=== PATIENT | male | born 1985 | race Native Hawaiian/Other Pacific Islander ===

== ENCOUNTER 2018-12-09 06:57 | Emergency (ER) | payer BC, OTHER ==
[2018-12-09] MEDS ORDERED: KETOROLAC 60 MG/2 ML VIAL IM STA (07:43)
[2018-12-09] MEDS ORDERED: CYCLOBENZAPRINE 10 MG TABLET PO STA (07:43)
[2018-12-09] MEDS ORDERED: DEXAMETHASONE 10 MG/ML VIAL PO STA (07:43)
[2018-12-09] MEDS ORDERED: CHERRY SYRUP 10 ML UDC PO ONE (07:43)
--- NOTE | 2018-12-09 07:46 | ED Physician Documentation ---
PD HPI BACK PAIN - Stated complaint Stated Complaint: BACK PX - Chief complaint Chief Complaint: Back Pain - History obtained from History obtained from: Patient, Family - History of Present Illness Timing - onset: How many weeks ago (1) Timing - duration: Weeks (1) Timing - details: Gradual onset Pain level max: 8 Pain level now: 8 Location: Lower, Right, Left Quality: Pain, Spasm, Sharp Associated symptoms: No: Fever, Weakness, Numbness, Incontinent of urine, Unable to urinate, Hematuria, Incontinent of stool Improves with: Rest Worsened by: Movement Contributing factors: Other (bends over a lot at work) Similar symptoms before: Has not had sx before Recently seen: Not recently seen Review of Systems Constitutional: denies: Fever, Chills Cardiac: denies: Chest pain / pressure Respiratory: denies: Cough GI: denies: Nausea, Vomiting : denies: Dysuria, Unable to Void, Incontinent Skin: denies: Rash Musculoskeletal: denies: Neck pain, Back pain Neurologic: denies: Headache PD PAST MEDICAL HISTORY - Past Medical History Past Medical History: No - Past Surgical History Past Surgical History: No - Present Medications Home Medications: Ambulatory Orders Medication Instructions Recorded Confirmed Cyclobenzaprine [Flexeril] 10 mg PO TID PRN #20 tablet 12/09/18 Meloxicam [Mobic] 15 mg PO DAILY PRN #20 tablet 12/09/18 predniSONE [Deltasone] 10 mg PO [id number] #42 tab 12/09/18 - Allergies Allergies/Adverse Reactions: Allergies Allergy/AdvReac Type Severity Reaction Status Date / Time No Known Drug Allergies Allergy Verified 12/09/18 07:07 - Living Situation Living Situation: reports: With family Living Arrangement: reports: At home - Social History Does the pt smoke?: No Smoking Status: Never smoker Does the pt have substance abuse?: No - Family History Family history: reports: Non contributory - Immunizations Immunizations are current?: No PD ED PE NORMAL - Vitals Vital signs reviewed: Yes - General General: Alert and oriented X 3, No acute distress, Well developed/nourished - HEENT HEENT: PERRL, Moist mucous membranes - Neck Neck: Supple, no meningeal sign - Cardiac Cardiac: RRR, Strong equal pulses - Respiratory Respiratory: No respiratory distress, Clear bilaterally - Abdomen Abdomen: Soft, Non tender, Non distended - Back Back: No spinal TTP, Other (no stepoff or deformity. no midline TTP. paraspinal spasm. B Low lumbar.) - Derm Derm: Warm and dry - Extremities Extremities: Other (Normal bilateral lower extremity patellar and ankle jerk reflexes. Normal great toe extension bilaterally. no saddle anesthesia) - Neuro Neuro: Alert and oriented X 3, No motor deficit, No sensory deficit - Psych Psych: Normal mood, Normal affect Results - Vitals Vitals: Vital Signs - 24 hr 12/09/18 12/09/18 07:05 08:50 Temperature 36.4 C L Heart Rate 76 74 Respiratory 16 18 Rate Blood Pressure 138/83 H 146/84 H O2 Saturation 99 Oxygen O2 Source Room air PD MEDICAL DECISION MAKING - ED course Complexity details: considered differential (No cauda equina, no spinal epidural abscess, no fracture, no aortic dissection or evidence of aneursym rupture), d/w patient, d/w family ED course: 33-year-old male with sciatica. Will place on steroids, anti-inflammatories and muscle relaxants for home. Will follow up with his doctor for further care. No evidence of cauda equina. No IV drug use. No evidence of epidural abscess. Ambulating well. Patient and family counseled regarding signs and symptoms for which I believe and urgent re-evaluation would be necessary. Patient with good understanding of and agreement to plan and is comfortable going home at this time This document was made in part using voice recognition software. While efforts are made to proofread this document, sound alike and grammatical errors may occur. Departure - Departure Disposition: 01 Home, Self Care Clinical Impression: Sciatica Qualifiers: Laterality: bilateral Qualified Code(s): M54.31 - Sciatica, right side Condition: Good Instructions: ED Sciatica Follow-Up: Kyra Luna PA-C [Primary Care Provider] - Within 1 week Prescriptions: Cyclobenzaprine [Flexeril] 10 mg PO TID PRN #20 tablet PRN Reason: Spasms Meloxicam [Mobic] 15 mg PO DAILY PRN #20 tablet PRN Reason: pain predniSONE [Deltasone] 10 mg PO [id number] #42 tab Comments: Return if you worsen. Do not drive or operate heavy machinery while taking the flexeril. this should improve over the next few days. Forms: Activity restrictions Discharge Date/Time: 12/09/18 08:55
[2018-12-09 09:20] VITALS: BP 146/84
== END 2018-12-09 08:55 | disposition home or self-care (01) ==
LOC: ED 06:57
DX: M54.31 Sciatica, right side (principal)
CPT/HCPCS: 96372; 99283; A9270

== ENCOUNTER 2018-12-10 07:01 | Outpatient (CLI) | payer BC | END 2018-12-10 07:02 | disposition critical access hospital (66) | LOC: EMS 07:01 | PROVIDERS: ATTEND Surgery | DX: K91.840 Postprocedural hemorrhage of a digestive system organ or structure following a digestive system procedure (principal) | CPT/HCPCS: A0425; A0427 ==

== ENCOUNTER 2018-12-10 07:25 | Emergency (ER) | payer BC ==
[2018-12-10] MEDS ORDERED: SODIUM CHLORIDE 0.9% 1,000 ML IV ONE ×2 (07:37→08:34)
--- NOTE | 2018-12-10 07:40 | ED Physician Documentation ---
History of Present Illness - Stated complaint Stated Complaint: SYNCOPE - Chief complaint Chief Complaint: General - History obtained from History obtained from: Patient, Family () - History of Present Illness Timing: Prior to arrival - Treatment prior to arrival Treatment prior to arrival: Normal saline 250 mL. - Additonal information Additional information: The patient is a 33-year-old male who arrives via ambulance after a syncopal episode at home. He underwent extraction of 2 teeth yesterday, and has been bl eeding from an extraction site since that time. This morning he felt lightheaded. When medics arrived they found his blood pressure low at 90/64, and he passed out when standing. Medics administered normal saline 250 mL, and the patient's blood pressure has responded well. He denies any abdominal pain, vomiting, or diarrhea. He denies history of similar symptoms in the past. The patient speaks very little [place]ian, so history is obtained mostly from his . He was seen here yesterday for lower back pain, which was diagnosed as sciatica. He denies back pain this morning. Review of Systems Constitutional: reports: Other (Dizzy, lightheaded.). denies: Fever Eyes: denies: Decreased vision Ears: denies: Tinnitus/ringing Nose: denies: Congestion Throat: reports: Dental pain / toothache (One day S/P dental extractions.). denies: Sore throat Cardiac: denies: Chest pain / pressure Respiratory: denies: Dyspnea, Cough GI: denies: Abdominal Pain, Nausea, Vomiting, Diarrhea : denies: Dysuria Skin: denies: Rash Musculoskeletal: denies: Back pain Neurologic: reports: Syncope. denies: Focal weakness, Numbness, Headache, Head injury PD PAST MEDICAL HISTORY - Past Medical History Cardiovascular: None Respiratory: None Neuro: None Endocrine/Autoimmune: None - Past Surgical History Past Surgical History: No - Present Medications Home Medications: Ambulatory Orders Medication Instructions Recorded Confirmed Cyclobenzaprine [Flexeril] 10 mg PO TID PRN #20 tablet 12/09/18 Meloxicam [Mobic] 15 mg PO DAILY PRN #20 tablet 12/09/18 predniSONE [Deltasone] 10 mg PO [id number] #42 tab 12/09/18 - Allergies Allergies/Adverse Reactions: Allergies Allergy/AdvReac Type Severity Reaction Status Date / Time No Known Drug Allergies Allergy Verified 12/10/18 07:34 - Social History Does the pt smoke?: No Smoking Status: Never smoker Does the pt have substance abuse?: No - Immunizations Immunizations are current?: No PD ED PE NORMAL - Vitals Vital signs reviewed: Yes (normal) - General General: Alert and oriented X 3, Well developed/nourished - HEENT HEENT: Atraumatic, EOMI, Pharynx benign, Other (There is clotted blood at an extraction site of a right upper molar, as well as a left lower molar. There is slight oozing of blood from the right upper molar extraction site.) - Neck Neck: Supple, no meningeal sign, No adenopathy - Cardiac Cardiac: RRR, No murmur - Respiratory Respiratory: No respiratory distress, Clear bilaterally - Abdomen Abdomen: Soft, Non tender - Back Back: No spinal TTP - Derm Derm: No rash - Extremities Extremities: No edema, No calf tenderness / cord - Neuro Neuro: Alert and oriented X 3, No motor deficit, No sensory deficit Results - Vitals Vitals: Oxygen O2 Source Room air - Labs Labs: Laboratory Tests 12/10/18 12/10/18 07:49 07:49 WBC 12.7 H RBC 4.26 L Hgb 11.4 L Hct 34.7 L MCV 81.4 MCH 26.8 L MCHC 33.0 RDW 13.3 Plt Count 335 MPV 6.6 L Neut # (Auto) 10.5 H Lymph # (Auto) 1.2 L Harding # (Auto) 1.0 Eos # (Auto) 0.0 Baso # (Auto) 0.0 Absolute Nucleated RBC 0.01 Nucleated RBC % 0.1 Sodium 137 Potassium 3.7 Chloride 103 Carbon Dioxide 24 Anion Gap 10.0 BUN 26 H Creatinine 0.9 Estimated GFR (MDRD) 96 Glucose 135 H Calcium 8.6 Total Bilirubin 0.8 AST 33 ALT 79 H Alkaline Phosphatase 75 Total Protein 6.4 L Albumin 3.6 Globulin 2.8 Albumin/Globulin Ratio 1.3 Lipase 27 PD MEDICAL DECISION MAKING - ED course Complexity details: reviewed old records, reviewed results, re-evaluated patient, considered differential, d/w patient, d/w family ED course: The patient's presentation is most consistent with orthostatic hypotension associated with dehydration. Although he does have blood loss from bleeding at the extraction site of a dental extraction, his hemoglobin and hematocrit are quite satisfactory 11.4 and 34.7. His BUN to creatinine ratio was consistent with dehydration, with BUN 26 and creatinine 0.9. He was initially tachycardic, with a pulse of 100 range. Treatment in the emergency department included compression of the bleeding site with a gauze pad. Normal saline 2 L were administered IV. He felt subjectively much improved after IV fluids. He subsequently demonstrated ability to ambulate without lightheadedness. There was complete cessation of bleeding from the tooth extraction site. I discussed with him and his the importance of adequate hydration, outpatient follow-up, as well as potentially worrisome signs or symptoms that should prompt reevaluation in the emergency department. Departure - Departure Disposition: 01 Home, Self Care Clinical Impression: Syncope, near, Surgical wound hemorrhage after dental procedure, Dehydration symptoms Condition: Stable Instructions: ED Dehydration, ED Near Syncope Unkn Follow-Up: Kyra Luna PA-C [Primary Care Provider] - Comments: Drink plenty of fluids. If there is bleeding from the tooth extraction site, apply gauze pad to help stop the bleeding. Return to the emergency department if you develop persistent bleeding, recurrent lightheadedness, or otherwise worsening symptoms. Discharge Date/Time: 12/10/18 11:00
[2018-12-10 07:56] LABS: BASOPHILS % (AUTO) 0.2 %; EOSINOPHILS % (AUTO) 0.2 %; HGB - HEMOGLOBIN 11.4 g/dL (14.0-18.0); LYMPHOCYTES # (AUTO) 1.2 10^3/uL (1.5-3.5); LYMPHOCYTES % (AUTO) 9.6 %; MEAN CORPUSCULAR HEMOGLOBIN 26.8 pg (27.0-31.0); MEAN CORPUSCULAR VOLUME 81.4 fL (80.0-94.0); MEAN PLATELET VOLUME 6.6 fL (7.4-11.4); MONOCYTES % (AUTO) 7.8 %; NEUTROPHILS # (AUTO) 10.5 10^3/uL (1.5-6.6); NEUTROPHILS % (AUTO) 82.2 %; PLT - PLATELET COUNT 335 10^3/uL (130-450); RED BLOOD COUNT 4.26 10^6/uL (4.70-6.10); RED CELL DISTRIBUTION WIDTH 13.3 % (12.0-15.0); WHITE BLOOD COUNT 12.7 x10^3/uL (4.8-10.8)
[2018-12-10 08:11] LABS: ALBUMIN 3.6 g/dL (3.2-5.5); ALBUMIN/GLOBULIN RATIO 1.3 (1.0-2.2); BILIRUBIN,TOTAL 0.8 mg/dL (0.2-1.0); CALCIUM 8.6 mg/dL (8.5-10.3); CREATININE 0.9 mg/dL (0.6-1.2); TOTAL PROTEIN 6.4 g/dL (6.7-8.2)
[2018-12-10 11:19] VITALS: BP 108/64
== END 2018-12-10 11:00 | disposition home or self-care (01) ==
LOC: EDUNIT# → ED 07:25
DX: R55 Syncope and collapse (principal); K91.840 Postprocedural hemorrhage of a digestive system organ or structure following a digestive system procedure
CPT/HCPCS: 36415; 80053; 83690; 85025; 96360; 96361; 99283

== ENCOUNTER 2021-03-16 19:30 | Emergency (ER) | payer BC, OTHER ==
--- NOTE | 2021-03-16 21:05 | ED Physician Documentation ---
History of Present Illness - Stated complaint Stated Complaint: RASH/MUSCLE PX - Chief complaint Chief Complaint: General - History obtained from History obtained from: Patient, Family - History of Present Illness Timing: How many days ago (5-6) Pain level max: 3 Pain level now: 3 - Additonal information Additional information: 36-year-old male with dry cough, loss of taste and smell for the past week. Body aches. Generalized rash. Has not had his Covid vaccination. Nothing makes it better or worse. Review of Systems Constitutional: reports: Chills. denies: Fever Ears: denies: Ear pain Nose: denies: Rhinorrhea / runny nose, Congestion Respiratory: reports: Cough (dry) GI: denies: Vomiting, Diarrhea Skin: reports: Rash (generalized) Musculoskeletal: denies: Neck pain, Back pain Neurologic: denies: Headache PD PAST MEDICAL HISTORY - Past Medical History Cardiovascular: None Respiratory: None Neuro: None Endocrine/Autoimmune: None - Past Surgical History Past Surgical History: No - Present Medications Home Medications: Ambulatory Orders Medication Instructions Recorded Confirmed No Known Home Medications 03/16/21 03/16/21 - Allergies Allergies/Adverse Reactions: Allergies Allergy/AdvReac Type Severity Reaction Status Date / Time No Known Drug Allergies Allergy Verified 03/16/21 19:49 - Social History Does the pt smoke?: No Smoking Status: Never smoker Does the pt have substance abuse?: No - Immunizations Immunizations are current?: No PD ED PE NORMAL - Vitals Vital signs reviewed: Yes - General General: Alert and oriented X 3, No acute distress, Well developed/nourished - HEENT HEENT: PERRL, Moist mucous membranes, Pharynx benign - Neck Neck: Supple, no meningeal sign - Cardiac Cardiac: RRR, Strong equal pulses - Respiratory Respiratory: No respiratory distress, Clear bilaterally - Abdomen Abdomen: Soft, Non tender, Non distended - Derm Derm: Warm and dry, Other (Generalized maculopapular exanthem. Blanches easily. Light pink in color.) - Extremities Extremities: No edema - Neuro Neuro: Alert and oriented X 3 - Psych Psych: Normal mood, Normal affect Results - Vitals Vitals: Vital Signs - 24 hr 03/16/21 03/16/21 03/16/21 19:49 21:20 21:41 Temperature 36.5 C 37.9 C Heart Rate 83 86 Respiratory 16 24 Rate Blood Pressure 124/90 H 94/63 O2 Saturation 99 99 Oxygen O2 Source Room air - Labs Labs: Laboratory Tests 03/16/21 20:05 Nasal Adenovirus (PCR) NOT DETECTED Nasal B. parapertussis DNA (PCR) NOT DETECTED Nasal Coronavir 229E PCR NOT DETECTED Nasal Coronavir HKU1 PCR NOT DETECTED Nasal Coronavir NL63 PCR NOT DETECTED Nasal Coronavir OC43 PCR NOT DETECTED Nasal Enterovir/Rhinovir PCR NOT DETECTED Nasal Influenza B PCR NOT DETECTED Nasal Influenza A PCR NOT DETECTED Nasal Parainfluen 1 PCR NOT DETECTED Nasal Parainfluen 2 PCR NOT DETECTED Nasal Parainfluen 3 PCR NOT DETECTED Nasal Parainfluen 4 PCR NOT DETECTED Nasal RSV (PCR) NOT DETECTED Nasal B.pertussis DNA PCR NOT DETECTED Nasal C.pneumoniae (PCR) NOT DETECTED Erik Human Metapneumo PCR NOT DETECTED Nasal M.pneumoniae (PCR) NOT DETECTED Nasal SARS-CoV-2 (PCR) DETECTED A PD MEDICAL DECISION MAKING - ED course Complexity details: reviewed results, re-evaluated patient, considered differential, d/w patient, d/w family ED course: Patient is positive for COVID-19. Unvaccinated. We will continue supportive care at home. Discussed bamlanivimab and etesevimab treatment, declines this at this time. Patient counseled regarding signs and symptoms for which I believe and urgent re-evaluation would be necessary. Patient with good understanding of and agreement to plan and is comfortable going home at this time This document was made in part using voice recognition software. While efforts are made to proofread this document, sound alike and grammatical errors may occur. Departure - Departure Disposition: 01 Home, Self Care Clinical Impression: COVID-19 Condition: Good Instructions: COVID-19 [facility], COVID-19 [facility] Department Statement Follow-Up: your,doctor as needed [Other] Comments: You have tested positive for Covid tonight. You need to quarantine until your symptoms have resolved. Return for any difficulty breathing or worsening symptoms. Follow-up with your doctor for further care. Stay home and rest. You should not be out in public with others either. Discharge Date/Time: 03/16/21 21:41
[2021-03-16 21:08] LABS: B. PARAPERTUSSIS- RESP PCR PAN NOT DETECTED; B. PERTUSSIS- RESP PCR PANEL NOT DETECTED; C. PNEUMONIAE- RESP PCR PANEL NOT DETECTED; CORONAVIRUS 229E-RESP PCR NOT DETECTED; CORONAVIRUS HKU1-RESP PCR NOT DETECTED; CORONAVIRUS NL63-RESP PCR NOT DETECTED; CORONAVIRUS OC43-RESP PCR NOT DETECTED; HUMAN METAPNEUMOVIRUS NOT DETECTED; INFLUENZA A- RESP PCR PANEL NOT DETECTED; INFLUENZA B - RESP PCR PANEL NOT DETECTED; M. PNEUMONIAE- RESP PCR PANEL NOT DETECTED; PARAINFLUENZA VIRUS 1 NOT DETECTED; PARAINFLUENZA VIRUS 2 NOT DETECTED; PARAINFLUENZA VIRUS 3 NOT DETECTED; PARAINFLUENZA VIRUS 4 NOT DETECTED; RHINOVIRUS/ENTEROVIRUS NOT DETECTED; RSV- RESP PCR PANEL NOT DETECTED; SARS-CoV-2 -RESP PCR PANEL DETECTED
[2021-03-16 21:24] VITALS: BP 94/63
== END 2021-03-16 21:41 | disposition home or self-care (01) ==
LOC: ED 19:30
DX: U07.1 COVID-19 (principal)
CPT/HCPCS: 0202U; 99283; 99284

== ENCOUNTER 2022-08-13 07:00 | Outpatient (CLI) | payer OTHER ==
--- NOTE | 2022-08-14 20:24 | XRAY Report ---
PROCEDURE: Foot 3 View LT INDICATIONS: L FOOT PX TECHNIQUE: 3 views of the foot were acquired. COMPARISON: None. FINDINGS: Bones: No fractures or dislocations. Well-defined dorsal calcaneal enthesophyte is seen. Chronic ap pearing erosive changes over dorsal and medial aspect of first metatarsal base is seen. No suspicious bony lesions. Soft tissues: Soft tissue swelling over dorsal and medial aspect of first metatarsal base is noted. No tibiotalar joint effusion. Achilles tendon appears normal. IMPRESSION: Suggestion of soft tissue pannus over dorsal and medial aspect of first metatarsal base with underlyi ng chronic appearing erosive changes. No acute fracture or dislocation. Well-defined dorsal calcaneal enthesophyte. Reviewed by: Ricardo Conte MD on 08/14/2022 8:23 PM PST Approved by: Ricardo Conte MD on 08/14/2022 8:23 PM [facility] Station ID: [id number]
== END 2022-08-13 23:59 | disposition home or self-care (01) ==
LOC: DI.N 07:00
PROVIDERS: ATTEND Physician Assistant
DX: M77.32 Calcaneal spur, left foot (principal); M79.672 Pain in left foot